=== PATIENT | female | born 1980 | race Caucasian/White ===

== ENCOUNTER 2018-04-09 16:00 | Emergency (ER) | payer OTHER ==
[~2018-04-09] VITALS: Ht 170.2 cm; Wt 77.1 kg
--- NOTE | 2018-04-09 16:42 | NUR ---
PT AMBULATES TO BED 6
[2018-04-09] MEDS ORDERED: MORPHINE SULFATE 4 MG/ML SYR IM ONE (16:45)
[2018-04-09] MEDS ORDERED: ONDANSETRON 4 MG ODT PO ONE (16:45)
[2018-04-09] MEDS ORDERED: KETOROLAC 60 MG/2 ML VIAL IM ONE (16:45)
--- NOTE | 2018-04-09 16:45 | NUR ---
Patient being evaluated by physician at bedside.
--- NOTE | 2018-04-09 16:45 | NUR ---
37Y/ F BIB DTR C/O [facility]. PT STATES SHE HAS DEMETRIUS HEADACHE & NAUSEA X 2 DAYS. DENIES V/D. PT STATED HEADACHE ON & OFF ON FRIDAY TO FRIDAY. AAOX4; VSS; BED DOWN; BEDRAILS UP X 1; ER MD AWARE AND NOTIFIED OF PT STATUS. MED HX : MIGRAINE MED: EXCEDRIN
--- NOTE | 2018-04-09 17:40 | NUR ---
[facility] ARRIVED TO BRING PT BACK TO FACILITY
== END 2018-04-09 18:14 | disposition home or self-care (01) ==
LOC: MED 16:00
DX: R51 Headache (principal); R11.2 Nausea with vomiting, unspecified; H53.149 Visual discomfort, unspecified; E07.9 Disorder of thyroid, unspecified
CPT/HCPCS: 70450; 81025; 96372; 99284; J1885; J2270; S0119

== ENCOUNTER 2022-02-15 11:21 | Emergency (ER) | payer OTHER ==
[~2022-02-15] VITALS: Ht 170.2 cm; Wt 131.5 kg
[2022-02-15 11:32] VITALS: BP 116/62
[2022-02-15] MEDS ORDERED: KETOROLAC 30 MG/ML VIAL IM ONE (13:10)
[2022-02-15] MEDS ORDERED: diazePAM 5 MG TAB PO ONE (13:10)
--- NOTE | 2022-02-15 13:32 | NUR ---
SLING PLACED ON PT L ARM. PT TOLERATED SLING WELL. + CMS AFTER APPLICATION
[2022-02-15] MEDS ORDERED: IBUP-2213 PO (13:39)
[2022-02-15] MEDS ORDERED: METH-1681 PO (13:39)
--- NOTE | 2022-02-15 14:04 | NUR ---
Patient discharged with v/s stable. Written and verbal after care instructions given and explained. Patient alert, oriented and verbalized understanding of instructions. Ambulatory with steady gait. All questions addressed prior to discharge. ID band removed. Patient advised to follow up with PMD. Rx of MOTRIN, ROBAXIN given. Patient educated on indication of medication including possible reaction and side effects. Opportunity to ask questions provided and answered.
== END 2022-02-15 14:03 | disposition home or self-care (01) ==
LOC: MED 11:21
DX: S46.812A Strain of other muscles, fascia and tendons at shoulder and upper arm level, left arm, initial encounter (principal); E07.9 Disorder of thyroid, unspecified; Z79.899 Other long term (current) drug therapy; X50.0XXA Overexertion from strenuous movement or load, initial encounter; Y93.89 Activity, other specified; Y92.89 Other specified places as the place of occurrence of the external cause; Y99.8 Other external cause status
CPT/HCPCS: 96372; 99283; J1885

== ENCOUNTER 2022-09-02 11:29 | Emergency (ER) | payer OTHER ==
[~2022-09-02] VITALS: Ht 170.2 cm; Wt 141.5 kg
[~2022-09-02 11:29] MED LIST: IBUP-2213 PO; METH-1681 PO
[2022-09-02 11:38] VITALS: BP 138/78
[2022-09-02] MEDS ORDERED: KETOROLAC 30 MG/ML VIAL IM ONE (12:00)
[2022-09-02] MEDS ORDERED: IBUP-2213 PO (12:05)
[2022-09-02] MEDS ORDERED: CIPR7.5S OT (12:05)
--- NOTE | 2022-09-02 12:10 | NUR ---
42F presents to ED with c/o right ear pain x2 days. Pt reports pain worsening last night, a constant, throbbing like, 10/10 pain localized to right ear. Pt reports taking ibuprofen for pain last night with no relief, denies use of medication today. Pt denies fevers, chills, N/V/D, dizziness, headaches or vision changes.
--- NOTE | 2022-09-02 12:30 | NUR ---
Patient discharged with v/s stable. Written and verbal after care instructions about Otitis Externa given and explained. Patient alert, oriented and verbalized understanding of instructions. Ambulatory with steady gait. All questions addressed prior to discharge. ID band removed. Patient advised to follow up with PMD. Rx of Ciprofloxacin and Ibuprofen given. Patient educated on indication of medication including possible reaction and side effects. Opportunity to ask questions provided and answered.
== END 2022-09-02 12:30 | disposition home or self-care (01) ==
LOC: MED 11:29
DX: H60.91 Unspecified otitis externa, right ear (principal)
CPT/HCPCS: 81025; 96372; 99283; J1885

== ENCOUNTER 2022-09-04 21:39 | Emergency (ER) | payer OTHER ==
[~2022-09-04] VITALS: Ht 170.2 cm; Wt 136.1 kg
[~2022-09-04 21:39] MED LIST changes: +CIPR7.5S OT
[2022-09-04 21:47] VITALS: BP 145/85
--- NOTE | 2022-09-04 21:55 | NUR ---
PT TO 6
--- NOTE | 2022-09-04 22:57 | NUR ---
Dr. Machuca examining patient.
[2022-09-04] MEDS ORDERED: ACET-8905 PO (23:31)
[2022-09-04] MEDS ORDERED: COROTSOL RIGHT EAR (23:31)
[2022-09-04] MEDS: KETOROLAC 60 MG/2 ML VIAL IM ONE (23:32)
[2022-09-04] MEDS ORDERED: ONDA8TAB87 PO (23:33)
[2022-09-04 23:44] VITALS: BP 128/82
--- NOTE | 2022-09-04 23:44 | NUR ---
Patient discharged with v/s stable. Written and verbal after care instructions given and explained. Patient alert, oriented and verbalized understanding of instructions. Ambulatory with steady gait. All questions addressed prior to discharge. ID band removed. Patient advised to follow up with PMD. Rx of NORCO 5-325, ZOFRAN, NEOMYCIN DROPS given. Patient educated on indication of medication including possible reaction and side effects. Opportunity to ask questions provided and answered.
== END 2022-09-04 23:44 | disposition home or self-care (01) ==
LOC: MED 21:39
DX: H60.91 Unspecified otitis externa, right ear (principal); R11.2 Nausea with vomiting, unspecified; E07.9 Disorder of thyroid, unspecified; Z79.899 Other long term (current) drug therapy
CPT/HCPCS: 96372; 99283; J1885